=== PATIENT | male | born 1955 | race Caucasian/White ===

== ENCOUNTER 2016-06-25 15:13 | Emergency (ER) | payer BC ==
[2016-06-25 16:52] VITALS: BP 141/82
[2016-06-25] MEDS ORDERED: Cephalexin CAP* 500 MG PO ONE (18:02)
--- NOTE | 2016-06-25 18:05 | UC ---
Skin Complaint HPI - History of Current Complaint Chief Complaint: UCSkin Time Seen by Provider: 06/25/16 17:48 Stated Complaint: INSECT BITE Hx Obtained From: Patient - states he awoke with bug bite on outer L leg 4 days ago. Initially it was itchy. Now has gotten more red and today pus started to come out when he squeezes it, soreness today Onset/Duration: Gradual Onset Timing: Constant Onset Severity: Mild Current Severity: Moderate Aggravating: Touch Alleviating: Nothing Associated Signs & Symptoms: Positive: Negative Related History: Insect Bite/Sting - Allergy/Home Medications Allergies/Adverse Reactions: Allergies Allergy/AdvReac Type Severity Reaction Status Date / Time Clopidogrel [From Plavix] Allergy Severe Hives Verified 01/26/16 09:48 Iodinated Contrast Media Allergy Severe Hives Verified 01/26/16 09:48 [CONTRAST DYE] Latex Allergy Severe Hives Verified 01/26/16 09:48 Ibuprofen Allergy See Comment Verified 06/25/16 16:52 Review of Systems Constitutional: Negative Respiratory: Negative Cardiovascular: Negative Gastrointestinal: Negative Neurovascular: Negative Musculoskeletal: Negative Neurological: Negative Psychological: Negative All Other Systems Reviewed And Are Negative: Yes PMH/Surg Hx/FS Hx/Imm Hx Previously Healthy: Yes Endocrine History Of: Reports: Diabetes - type 2, Dyslipidemia Denies: Thyroid Disease, Hyperthyroidism, Hypothyroidism Cardiovascular History Of: Reports: Cardiac Disorders - [place], 2005, stent placement, Hypertension Denies: Pacemaker/ICD, Myocardial Infarction, Congestive Heart Failure, Atrial Fibrillation, Deep Vein Thrombosis, Bleeding Disorders Respiratory History Of: Reports: COPD, Asthma Denies: Bronchitis, Pneumonia, Pulmonary Embolism GI/ History Of: Reports: Gastroesophageal Reflux Denies: Ulcer, Gastrointestinal Bleed, Gall Bladder Disease, Kidney Stones, Diverticulitis, Renal Disease, Urosepsis Neurological History Of: Denies: TIA, CVA, Dementia, Seizures, Migraine Psychological History Of: Reports: Anxiety Denies: Depression, Bipolar Disorder, Schizophrenia, Post Traumatic Stress Disorder Cancer History Of: Denies: Lung Cancer, Colorectal Cancer, Breast Cancer, Prostate Cancer, Cervical Cancer Other History Of: Negative For: HIV, Hepatitis B, Hepatitis C - Surgical History Surgical History: Yes Surgery Procedure, Year, and Place: 1965 open reduction of right forearm. 2004 [facility](MRI CONDITIONAL UP TO 3T - 500G/CM)PT WILL BRING CARD. 2007 - bone spur removal LEFT shoulder. Tongue lesion removed-pre cancerous - Family History Known Family History: Positive: None - Social History Occupation: Retired Lives: With Family Alcohol Use: Rare Substance Use Type: None Smoking Status (MU): Former Smoker Type: Cigarettes When Did the Patient Quit Smoking/Using Tobacco: 1981 - Immunization History Most Recent Influenza Vaccination: season Most Recent Pneumonia Vaccination: UTD Physical Exam Triage Information Reviewed: Yes Appearance: Well-Appearing, No Pain Distress, Well-Nourished Vital Signs: Initial Vital Signs Temp 97.7 F 06/25/16 16:48 Pulse 78 06/25/16 16:48 Resp 18 06/25/16 16:48 BP 141/82 06/25/16 16:48 Pulse Ox 99 06/25/16 16:48 Vital Signs Reviewed: Yes Respiratory Exam: Normal Cardiovascular Exam: Normal Neurological Exam: Normal Psychological Exam: Normal Skin Exam: Other - 1cm diameter, slightly reaised, erythemic lesion lateral L leg near knee. small white central area, not draining unless pressure applied. scant amount white discharge collected for C&S. no streaking or dependent edema Course/Dx - Differential Diagnoses - Skin Complaint Differential Diagnoses: Abscess, Cellulitis, Other - insect bite - Diagnoses Provider Diagnoses: superficial abscess L leg Discharge - Discharge Plan Condition: Stable Disposition: HOME Prescriptions: Cephalexin CAP* [Keflex 500 CAP*] 500 mg PO TID #21 cap Patient Education Materials: Abscess (ED) Referrals: Mikel Leonard MD [Primary Care Provider] - 2 Days (recheck wound) Additional Instructions: apply warm packs to wound keep area clean and dry and apply thin layer of bacitracin ointment daily for 2- 4 days Take cephalexin as prescribed if your symptoms worsen at any time, please report to ER
== END 2016-06-25 18:20 | disposition home or self-care (01) ==
LOC: UCEAST 15:13
DX: L02.416 Cutaneous abscess of left lower limb (principal); E11.9 Type 2 diabetes mellitus without complications; E78.5 Hyperlipidemia, unspecified; I25.2 Old myocardial infarction; I25.10 Atherosclerotic heart disease of native coronary artery without angina pectoris; Z95.5 Presence of coronary angioplasty implant and graft; I10 Essential (primary) hypertension; J44.9 Chronic obstructive pulmonary disease, unspecified; J45.909 Unspecified asthma, uncomplicated; K21.9 Gastro-esophageal reflux disease without esophagitis; F41.9 Anxiety disorder, unspecified; Z87.891 Personal history of nicotine dependence; Z88.5 Allergy status to narcotic agent; Z88.8 Allergy status to other drugs, medicaments and biological substances; Z91.040 Latex allergy status; Z91.041 Radiographic dye allergy status
CPT/HCPCS: 87070; 87077; 87185; 87186; 87205; 99212; A9270-GY; G0463

== ENCOUNTER 2016-10-08 07:07 | Emergency (ER) | payer BC ==
[2016-10-08 07:28] VITALS: BP 154/88
--- NOTE | 2016-10-08 07:40 | UC ---
Respiratory Complaint HPI - HPI Summary HPI Summary: 1 WEEK OF COUGH, CONGESTION, ST, EAR PRESSURE, CHILL AND FATIGUE. FEELS HE IS GETTING WORSE. NO FEVER, N/V/D. - History of Current Complaint Chief Complaint: UCRespiratory Stated Complaint: SINUS ISSUE COUGH Time Seen by Provider: 10/08/16 07:21 Hx Obtained From: Patient Onset/Duration: Gradual Onset, Lasting Days, Still Present Timing: Constant Severity Initially: Moderate Severity Currently: Moderate Pain Intensity: 7 Pain Scale Used: 0-10 Numeric Character: Cough: Nonproductive Aggravating Factors: Nothing Alleviating Factors: Nothing Associated Signs And Symptoms: Positive: Chills, Wheezing, URI, Nasal Congestion , Hoarseness. Negative: Fever - Allergies/Home Medications Allergies/Adverse Reactions: Allergies Allergy/AdvReac Type Severity Reaction Status Date / Time Clopidogrel [From Plavix] Allergy Severe Hives Verified 01/26/16 09:48 Iodinated Contrast Media Allergy Severe Hives Verified 01/26/16 09:48 [CONTRAST DYE] Latex Allergy Severe Hives Verified 01/26/16 09:48 Ibuprofen Allergy See Comment Verified 06/25/16 16:52 PMH/Surg Hx/FS Hx/Imm Hx Endocrine History: Diabetes Cardiovascular History: Cardiac Disease - STENT 2004, Hypertension, Myocardial Infarction Respiratory History: COPD, Asthma Other History Of: Negative For: HIV, Hepatitis B, Hepatitis C - Surgical History Surgical History: Yes Surgery Procedure, Year, and Place: 1966 open reduction of right forearm. 2004 Stent placement - [facility] ELUDING STENT(MRI CONDITIONAL UP TO 3T - 500G/CM)PT WILL BRING CARD. 2007 - bone spur removal LEFT shoulder. Tongue lesion removed-pre cancerous - Family History Known Family History: Positive: Diabetes - Social History Alcohol Use: Rare Substance Use Type: None Smoking Status (MU): Former Smoker Type: Cigarettes When Did the Patient Quit Smoking/Using Tobacco: 1981 - Immunization History Most Recent Influenza Vaccination: season Most Recent Pneumonia Vaccination: UTD Review of Systems Constitutional: Chills, Fatigue ENT: Sore Throat, Ear Ache, Nasal Discharge Respiratory: Cough Cardiovascular: Negative Gastrointestinal: Negative All Other Systems Reviewed And Are Negative: Yes Physical Exam Triage Information Reviewed: Yes Appearance: Well-Appearing, No Pain Distress, Well-Nourished Vital Signs: Initial Vital Signs Temp 96.8 F 06/10/17 07:23 Pulse 74 10/08/16 07:23 Resp 18 10/08/16 07:23 BP 154/88 10/08/16 07:23 Pulse Ox 99 10/08/16 07:23 Vital Signs Reviewed: Yes Eyes: Positive: Conjunctiva Clear ENT: Positive: Hearing grossly normal, Pharyngeal erythema, TMs normal Neck: Positive: Supple, Nontender, No Lymphadenopathy Respiratory: Positive: No respiratory distress, No accessory muscle use, Decreased breath sounds, Wheezing - INTERMITTENT RIGHT SIDED Cardiovascular Exam: Normal Abdomen Description: Positive: Soft Musculoskeletal: Positive: No Edema Neurological: Positive: Alert Psychological: Positive: Age Appropriate Behavior Skin: Negative: rashes UC Diagnostic Evaluation - Laboratory O2 Sat by Pulse Oximetry: 99 Respiratory Course/Dx - Differential Dx/Diagnosis Provider Diagnoses: ACUTE BRONCHITIS Discharge - Discharge Plan Condition: Stable Disposition: HOME Prescriptions: Azithromycin [Azithromycin 500 MG TAB] 500 mg PO DAILY #5 tab guaiFENesin/CODIEN 100MG-10MG* [Robitussin AC 100Mg-10Mg*] 5 - 10 ml PO Q6H PRN #150 ml MDD 40ML PRN Reason: Cough predniSONE TAB* [Deltasone TAB*] 40 mg PO DAILY #10 tab Patient Education Materials: Acute Bronchitis (ED) Referrals: Mikel Leonard MD [Primary Care Provider] - If Needed
== END 2016-10-08 07:54 | disposition home or self-care (01) ==
LOC: UCEAST 07:07
DX: J20.9 Acute bronchitis, unspecified (principal); E11.9 Type 2 diabetes mellitus without complications; I25.2 Old myocardial infarction; I10 Essential (primary) hypertension; Z95.5 Presence of coronary angioplasty implant and graft; J44.9 Chronic obstructive pulmonary disease, unspecified; Z88.6 Allergy status to analgesic agent; Z88.8 Allergy status to other drugs, medicaments and biological substances; Z91.041 Radiographic dye allergy status; Z91.040 Latex allergy status; Z87.891 Personal history of nicotine dependence
CPT/HCPCS: 99212; G0463

== ENCOUNTER 2018-08-31 19:25 | Emergency (ER) | payer BC ==
[2018-08-31 19:57] VITALS: BP 156/93
[2018-08-31] MEDS ORDERED: DOXYcycline CAP(*) 100 MG PO ONE (20:15)
--- NOTE | 2018-08-31 20:20 | UC ---
Skin Complaint HPI - HPI Summary HPI Summary: 63 year old male present with tick on L upper arm, unsure how long tick has been attached but believes greater than or around 24 hours. concerned because feeling sweaty, tired, and concerned about lyme disease as he has known people that have this disease. no other complaints, no prior exposure to lyme disease. - History of Current Complaint Chief Complaint: UCSkin Time Seen by Provider: 08/31/18 20:06 Stated Complaint: TICK BITE Hx Obtained From: Patient Onset/Duration: Sudden Onset, Lasting Days Skin Exposure Onset/Duration: Days Ago Pain Intensity: 3 Pain Scale Used: 0-10 Numeric - Allergy/Home Medications Allergies/Adverse Reactions: Allergies Allergy/AdvReac Type Severity Reaction Status Date / Time clopidogrel Allergy Severe Hives Verified 08/31/18 19:58 Iodinated Contrast- Oral and Allergy Severe Hives Verified 08/31/18 19:58 IV Dye latex Allergy Severe Hives Verified 08/31/18 19:58 ibuprofen Allergy See Comment Verified 08/31/18 19:58 PMH/Surg Hx/FS Hx/Imm Hx Previously Healthy: Yes Other History Of: Negative For: HIV, Hepatitis B, Hepatitis C - Surgical History Surgical History: Yes Surgery Procedure, Year, and Place: 1965 open reduction of right forearm. 2004 Stent placement - [facility] ELUDING STENT(MRI CONDITIONAL UP TO 3T - 500G/CM)PT WILL BRING CARD. 2007 - bone spur removal LEFT shoulder. Tongue lesion removed-pre cancerous - Family History Known Family History: Positive: None, Diabetes - Social History Alcohol Use: Rare Alcohol Amount: 1 mo. Substance Use Type: None Smoking Status (MU): Former Smoker Type: Cigarettes When Did the Patient Quit Smoking/Using Tobacco: 1981 - Immunization History Most Recent Influenza Vaccination: season Most Recent Pneumonia Vaccination: UTD Review of Systems All Other Systems Reviewed And Are Negative: Yes Constitutional: Positive: Chills, Fatigue Skin: Positive: Rash - at tick bite site Psychological: Positive: Anxious Is Patient Immunocompromised?: No Physical Exam Triage Information Reviewed: Yes Appearance: Well-Appearing, No Pain Distress, Well-Nourished Vital Signs: Initial Vital Signs Temp 96.6 F 08/31/18 19:52 Pulse 86 08/31/18 19:52 Resp 16 08/31/18 19:52 BP 156/93 08/31/18 19:52 Pulse Ox 97 08/31/18 19:52 Vital Signs Reviewed: Yes Eyes: Positive: Conjunctiva Clear Musculoskeletal Exam: Normal Neurological Exam: Normal Psychological Exam: Normal Skin: Positive: Other - Small not engorged deer tick noted on L upper arm, removed without difficulty area cleaned with alcohol, bruising around site, no rash. non-tender. Course/Dx - Course Course Of Treatment: tick removed without difficulty, patient feels better after being reassured that lyme disease could not start this soon after a bite, educated to monitor area, doxy given due to unknown duration of bite. H/O HTN- will follow with PCP on meds, - Diagnoses Provider Diagnosis: Tick bite Discharge - Sign-Out/Discharge Documenting (check all that apply): Patient Departure All imaging exams completed and their final reports reviewed: No Studies - Discharge Plan Condition: Good Disposition: HOME Patient Education Materials: Lyme Disease (ED), Tick Bite (ED) Referrals: Mikel Leonard MD [Primary Care Provider] - Additional Instructions: - Monitor for symptoms of lyme - Monitor site for infection - Follow up with primary if symptoms develop. - Prophylaxis given today - Follow up with primary due to elevated blood pressure - Billing Disposition and Condition Condition: GOOD Disposition: Home - Attestation Statements Provider Attestation: Patient not seen by me. I was available for consult.
== END 2018-08-31 20:35 | disposition home or self-care (01) ==
LOC: UCEAST 19:25
DX: S40.862A Insect bite (nonvenomous) of left upper arm, initial encounter (principal); I10 Essential (primary) hypertension; W57.XXXA Bitten or stung by nonvenomous insect and other nonvenomous arthropods, initial encounter; Z88.8 Allergy status to other drugs, medicaments and biological substances; Z91.041 Radiographic dye allergy status; Z91.040 Latex allergy status; Z87.891 Personal history of nicotine dependence
CPT/HCPCS: 99212; A9270-GY; G0463

== ENCOUNTER 2018-09-12 09:40 | Emergency (ER) | payer BC ==
[2018-09-12 09:54] VITALS: BP 137/89
--- NOTE | 2018-09-12 10:27 | UC ---
Respiratory Complaint HPI - HPI Summary HPI Summary: 63-year-old male comes in with a chief complaint of more than one week of cough chest congestion upper respiratory tract infection symptoms. Patient does have a history of asthma and is been using his albuterol frequently at home. Albuterol does help briefly but then he gets short of breath again. He's having thick sputum production. He is on CPAP has been having a hard time sleeping because of the shortness of breath. He does get some bilateral chest pain with cough and chest tightness. Patient's had a heart attack in the past he says this does not feel like a heart attack. Patient took a Z-Dustin which did help but then symptoms came back and at the end of the course of the Z-Dustin. No complaint of any pedal edema or calf pain no history of DVT or pulmonary embolus. - History of Current Complaint Chief Complaint: UCRespiratory Stated Complaint: RESP.ISSIUES Time Seen by Provider: 09/12/18 10:13 Pain Intensity: 5 - Allergies/Home Medications Allergies/Adverse Reactions: Allergies Allergy/AdvReac Type Severity Reaction Status Date / Time clopidogrel Allergy Severe Hives Verified 09/12/18 09:54 Iodinated Contrast- Oral and Allergy Severe Hives Verified 09/12/18 09:54 IV Dye latex Allergy Severe Hives Verified 09/12/18 09:54 ibuprofen Allergy See Comment Verified 09/12/18 09:54 PMH/Surg Hx/FS Hx/Imm Hx Previously Healthy: Yes Endocrine History: Diabetes, Dyslipidemia Cardiovascular History: Hypertension, Myocardial Infarction Respiratory History: Asthma GI/ History: Gastroesophageal Reflux Other History Of: Negative For: HIV, Hepatitis B, Hepatitis C - Surgical History Surgical History: Yes Surgery Procedure, Year, and Place: 1965 open reduction of right forearm. 2004 Stent placement - [facility] STENT(MRI CONDITIONAL UP TO 3T - 500G/CM)PT WILL BRING CARD. 2007 - bone spur removal LEFT shoulder. Tongue lesion removed-pre cancerous - Family History Known Family History: Positive: None, Diabetes - Social History Alcohol Use: Rare Alcohol Amount: 1 mo. Substance Use Type: None Smoking Status (MU): Former Smoker Type: Cigarettes When Did the Patient Quit Smoking/Using Tobacco: 1981 - Immunization History Most Recent Influenza Vaccination: season Most Recent Pneumonia Vaccination: UTD Review of Systems All Other Systems Reviewed And Are Negative: Yes Constitutional: Positive: Other - SEE HPI Skin: Positive: Negative Eyes: Positive: Negative ENT: Positive: Nasal Discharge Respiratory: Positive: Shortness Of Breath, Cough, Other - SEE HPI Cardiovascular: Positive: Other - SEE HPI Gastrointestinal: Positive: Negative Motor: Positive: Negative Neurovascular: Positive: Negative Musculoskeletal: Positive: Negative. Negative: Calf Tenderness, Edema Neurological: Positive: Negative Psychological: Positive: Negative Is Patient Immunocompromised?: No Physical Exam Triage Information Reviewed: Yes Appearance: No Pain Distress, Well-Nourished, Ill-Appearing - MILD Vital Signs: Initial Vital Signs Temp 97.2 F 09/12/18 09:48 Pulse 75 09/12/18 09:48 Resp 18 09/12/18 09:48 BP 137/89 09/12/18 09:48 Pulse Ox 100 09/12/18 09:48 Vital Signs Reviewed: Yes Eye Exam: Normal Eyes: Positive: Conjunctiva Clear ENT: Positive: Pharynx normal, Nasal congestion, TMs normal Neck: Positive: Supple Respiratory: Positive: Lungs clear, Normal breath sounds, No respiratory distress Cardiovascular: Positive: RRR Musculoskeletal: Positive: Strength Intact, ROM Intact, No Edema - NO CALF TENDERNESS Psychological Exam: Normal Psychological: Positive: Age Appropriate Behavior Skin Exam: Normal Respiratory Course/Dx - Course Course Of Treatment: Patient Name: ELENI FLOWERS Medical Record#: [id number] Ordering Physician: Arthur Dong MD Acct.#: [id number] : 1955 Age: 63 Sex: M Location: [facility] Exam Date: 09/12/18 1022 ADM Status: REG ER Order Information: CHEST PA LAT 2 VWS Accession Number: [id number] CPT: 15285 Indication: Chest congestion. Shortness of breath. 2 views of the chest including dual energy PA views demonstrates no mediastinal shift. Heart is of normal size and configuration. Lung kang appear clear. Compared to previous exam of November 06, 2009 no significant change is noted. IMPRESSION: No active cardiopulmonary disease is noted. <Electronically signed by Eryn Deras MD in OV> 09/12/18 1057 I discussed the chest x-ray report with the patient. The patient's shortness of breath did improve in clinic with an albuterol nebulizer. Patient reports that in the past 20s taken prednisone his diabetes has gotten out of control therefore he prefers to not be on prednisone a possible. He does take an inhaled corticosteroid. The plan is to keep gone with his inhalers to include his inhaled corticosteroid. No pneumonia seen on chest x-ray. Because of the worsening of his symptoms will continue antibiotics. Patient 30 had days azithromycin therefore we will treat with Augmentin at this time. Patient to follow-up his primary care doctor if he gets worse the patient should go to the emergency department. - Differential Dx/Diagnosis Provider Diagnosis: Bronchitis, Asthma Discharge - Sign-Out/Discharge Documenting (check all that apply): Patient Departure All imaging exams completed and their final reports reviewed: Yes - Discharge Plan Condition: Stable Disposition: HOME Prescriptions: Amoxicillin/Clavulanate TAB* [Augmentin TAB 875*] 875 mg PO BID #20 tab Patient Education Materials: Asthma (ED), Acute Bronchitis (ED) Referrals: Mikel Leonard MD [Primary Care Provider] - Additional Instructions: FOLLOW UP WITH YOUR DOCTOR. GO TO THE EMERGENCY DEPARTMENT IF YOUR CONDITION WORSENS OR ANY QUESTIONS OR CONCERNS. - Billing Disposition and Condition Condition: STABLE Disposition: Home
[2018-09-12] MEDS ORDERED: Albuterol 2.5 MG/3 ML NEB.SOL* (0.083%) INH ONE (10:35)
== END 2018-09-12 11:30 | disposition home or self-care (01) ==
LOC: UCEAST 09:40
DX: J45.909 Unspecified asthma, uncomplicated (principal); E11.9 Type 2 diabetes mellitus without complications; I10 Essential (primary) hypertension; G47.33 Obstructive sleep apnea (adult) (pediatric); I25.2 Old myocardial infarction; Z91.040 Latex allergy status; Z87.891 Personal history of nicotine dependence; Z91.041 Radiographic dye allergy status; Z88.8 Allergy status to other drugs, medicaments and biological substances
CPT/HCPCS: 71046; 99212; G0463

== ENCOUNTER 2018-10-09 07:02 | Emergency (ER) | payer BC ==
[2018-10-09 07:15] VITALS: BP 130/80
--- NOTE | 2018-10-09 07:25 | UC ---
Throat Pain/Nasal Ryne HPI - HPI Summary HPI Summary: 63-year-old male comes in with a chief complaint of sore throat for 4 days. Hurts more when he swallows. Take acetaminophen which does help some with the symptoms. No fevers or chills no runny nose no cough or chest congestion. He did notice a white area blister on the right tonsil. 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 - History of Current Complaint Chief Complaint: UCGeneralIllness Stated Complaint: SORE THROAT Time Seen by Provider: 10/09/18 07:10 Pain Intensity: 3 - Allergies/Home Medications Allergies/Adverse Reactions: Allergies Allergy/AdvReac Type Severity Reaction Status Date / Time clopidogrel Allergy Severe Hives Verified 10/09/18 07:15 Iodinated Contrast- Oral and Allergy Severe Hives Verified 10/09/18 07:15 IV Dye latex Allergy Severe Hives Verified 10/09/18 07:15 ibuprofen Allergy See Comment Verified 10/09/18 07:15 PMH/Surg Hx/FS Hx/Imm Hx Previously Healthy: Yes Endocrine History: Diabetes Cardiovascular History: Hypertension GI/ History: Gastroesophageal Reflux Other History Of: Negative For: HIV, Hepatitis B, Hepatitis C - Surgical History Surgical History: Yes Surgery Procedure, Year, and Place: 1965 open reduction of right forearm. 2004 Stent [facility] - [facility] ELUDING STENT(MRI CONDITIONAL UP TO 3T - 500G/CM)PT WILL BRING CARD. 2007 - bone spur removal LEFT shoulder. Tongue lesion removed-pre cancerous - Family History Known Family History: Positive: None, Diabetes - Social History Alcohol Use: Rare Alcohol Amount: 1 mo. Substance Use Type: None Smoking Status (MU): Former Smoker Type: Cigarettes When Did the Patient Quit Smoking/Using Tobacco: 1981 - Immunization History Most Recent Influenza Vaccination: 2015/2015 season Most Recent Pneumonia Vaccination: UTD Review of Systems All Other Systems Reviewed And Are Negative: Yes Constitutional: Positive: Negative Skin: Positive: Negative Eyes: Positive: Negative ENT: Positive: Sore Throat Respiratory: Positive: Negative Cardiovascular: Positive: Negative Gastrointestinal: Positive: Negative Motor: Positive: Negative Neurovascular: Positive: Negative Musculoskeletal: Positive: Negative Neurological: Positive: Negative Psychological: Positive: Negative Is Patient Immunocompromised?: No Physical Exam Triage Information Reviewed: Yes Appearance: Well-Appearing, No Pain Distress, Well-Nourished Vital Signs: Initial Vital Signs Temp 97.9 F 10/09/18 07:13 Pulse 77 10/09/18 07:13 Resp 15 10/09/18 07:13 BP 130/80 10/09/18 07:13 Pulse Ox 99 10/09/18 07:13 Vital Signs Reviewed: Yes Eye Exam: Normal Eyes: Positive: Conjunctiva Clear ENT: Positive: Pharyngeal erythema, Tonsillar swelling - RT, Tonsillar exudate - 4MM WHITE SPOT RT TONSIL Neck: Positive: Supple Respiratory: Positive: Lungs clear, Normal breath sounds, No respiratory distress Cardiovascular: Positive: RRR Musculoskeletal Exam: Normal Musculoskeletal: Positive: Strength Intact, ROM Intact Neurological: Positive: Alert Psychological Exam: Normal Psychological: Positive: Age Appropriate Behavior Skin Exam: Normal Throat Pain/Nasal Course/Dx - Course Course Of Treatment: DISCUSSED VIRAL VERSES BACTERIAL INFECTION AND THE ROLE OF ANTIBIOTICS. THE PATIENT PREFERS TO BE ON ANTIBIOTICS AT THIS TIME. - Differential Dx/Diagnosis Provider Diagnosis: Pharyngitis Discharge - Sign-Out/Discharge Documenting (check all that apply): Patient Departure All imaging exams completed and their final reports reviewed: No Studies - Discharge Plan Condition: Stable Disposition: HOME Prescriptions: Cephalexin CAP* [Keflex CAP*] 500 mg PO TID #30 cap Patient Education Materials: Pharyngitis (ED) Referrals: Mikel Leonard MD [Primary Care Provider] - Jose Tripp MD [Medical Doctor] - Additional Instructions: FOLLOW UP WITH ENT, DR TRIPP, IF NOT COMPLETELY IMPROVED. GET RECHECKED SOONER IF YOUR CONDITION WORSENS OR ANY QUESTIONS OR CONCERNS. - Billing Disposition and Condition Condition: STABLE Disposition: Home
== END 2018-10-09 07:30 | disposition home or self-care (01) ==
LOC: UCEAST 07:02
DX: J02.9 Acute pharyngitis, unspecified (principal); E11.9 Type 2 diabetes mellitus without complications; I10 Essential (primary) hypertension; Z87.891 Personal history of nicotine dependence
CPT/HCPCS: 87651; 99212; G0463

== ENCOUNTER 2019-01-30 09:38 | Emergency (ER) | payer BC ==
[2019-01-30 10:13] VITALS: BP 140/79
--- NOTE | 2019-01-30 10:21 | UC ---
Throat Pain/Nasal Ryne HPI - HPI Summary HPI Summary: 64 yo male presents with sore throat. He tells me that for the past 2 weeks he has noticed right neck pain that radiates into his right clavicle and into his shoulder. Pain is noticeable at rest and is worse with a deep breath. Does not change with movement or swallowing. He has had cold symptoms with a runny nose, post nasal drip, and dry cough intermittently over the past week. He has a history of a tongue cancer that was removed about 3 years ago by Oral surgery. Denies weight loss, fatigue, fever, chills, SOB, chest pain. No difficulty breathing or swallowing - History of Current Complaint Chief Complaint: UCGeneralIllness Stated Complaint: SORE THROAT Time Seen by Provider: 01/30/19 10:21 Hx Obtained From: Patient Onset/Duration: Gradual Onset Severity: Moderate Pain Intensity: 7 Pain Scale Used: 0-10 Numeric - Allergies/Home Medications Allergies/Adverse Reactions: Allergies Allergy/AdvReac Type Severity Reaction Status Date / Time clopidogrel Allergy Severe Hives Verified 01/30/19 10:02 Iodinated Contrast Media Allergy Severe Hives Verified 01/30/19 10:02 [Iodinated Contrast- Oral and IV Dye] latex Allergy Severe Hives Verified 01/30/19 10:02 ibuprofen Allergy See Comment Verified 01/30/19 10:02 PMH/Surg Hx/FS Hx/Imm Hx Endocrine History: Diabetes Cardiovascular History: Cardiac Disease, Hypertension Respiratory History: COPD GI/ History: Gastroesophageal Reflux Other History Of: Negative For: HIV, Hepatitis B, Hepatitis C - Surgical History Surgical History: Yes Surgery Procedure, Year, and Place: 1965 open reduction of right forearm. 2004 Stent placement - [facility] STENT(MRI CONDITIONAL UP TO 3T - 500G/CM)PT WILL BRING CARD. 2007 - bone spur removal LEFT shoulder. Tongue lesion removed-pre cancerous - Family History Known Family History: Positive: Diabetes - Social History Lives: With Family Alcohol Use: Rare Alcohol Amount: 1 mo. Substance Use Type: None Smoking Status (MU): Former Smoker Type: Cigarettes When Did the Patient Quit Smoking/Using Tobacco: 1981 - Immunization History Most Recent Influenza Vaccination: 2015/2015 season Most Recent Pneumonia Vaccination: UTD Review of Systems All Other Systems Reviewed And Are Negative: No Constitutional: Positive: Negative Skin: Positive: Negative Eyes: Positive: Negative ENT: Positive: Sore Throat Respiratory: Positive: Negative Cardiovascular: Positive: Negative Gastrointestinal: Positive: Negative Neurovascular: Positive: Negative Neurological: Positive: Negative Psychological: Positive: Negative Physical Exam - Summary Physical Exam Summary: GENERAL: NAD. WDWN. No pain distress. SKIN: No rashes, sores, or open wounds. HEENT: Head: AT/NC Eyes: PERRLA. EOM intact. Conjunctiva clear without inflammation or discharge. Ears: Hearing grossly normal. TMs intact, no bulging, erythema, or edema. Nose: Nasal mucosa pink and moist. NTTP maxillary and frontal sinus. Throat: Posterior oropharynx without exudates, erythema, or tonsillar enlargement. Uvula midline. Positive post nasal drip NECK: Supple. Nontender. No lymphadenopathy. CHEST: CTAB. Scant wheezing throughout worst at RUL. No accessory muscle use. Breathing comfortably and in no distress. CV: RRR. Pulses intact. Brisk cap refill. MSK: FROM and 5/5 strength throughout. NECK: FROM. TTP about posterior and anterior region around SCM without appreciable soft tissue abnormality. NEURO: Alert. PSYCH: Age appropriate behavior. Triage Information Reviewed: Yes Vital Signs: Initial Vital Signs Temp 97.7 F 01/30/19 10:07 Pulse 80 01/30/19 10:07 Resp 18 01/30/19 10:07 BP 140/79 01/30/19 10:07 Pulse Ox 99 01/30/19 10:07 Vital Signs Reviewed: Yes Diagnostics - Radiology XR neck Radiology Interpretation Completed By: Radiologist Summary of Radiographic Findings: IMPRESSION: 1. PREVERTEBRAL SOFT TISSUE SWELLING ALONG THE UPPER CERVICAL SPINE, LIKELY REPRESENTING PHARYNGEAL MUCOSAL EDEMA GIVEN THE CLINICAL HISTORY. IF CLINICALLY INDICATED, THIS CAN BE FURTHER EVALUATED WITH CONTRAST-ENHANCED CT OF THE NECK. 2. DEGENERATIVE DISC DISEASE AND OSTEOARTHRITIS. CXR Radiology Interpretation Completed By: Radiologist Summary of Radiographic Findings: IMPRESSION: NO ACTIVE CARDIOPULMONARY DISEASE. Throat Pain/Nasal Course/Dx - Course Course Of Treatment: He was given viscous lidocaine in the clinic which did not change his discomfort. XR as above. Discussed with pt. Given his worsening symptoms and hx of oral cancer - I recommended he go to the ER for further evaluation, likely for a CT with contrast of the area. He was agreeable to this and his will drive him. - Differential Dx/Diagnosis Provider Diagnosis: Throat pain Discharge ED - Sign-Out/Discharge Documenting (check all that apply): Patient Departure All imaging exams completed and their final reports reviewed: Yes - Discharge Plan Condition: Stable Disposition: HOME-RECOMMEND TO ED Referrals: Mikel Leonard MD [Primary Care Provider] - Additional Instructions: Please go to the ER for further evaluation of your neck pain and findings on your neck XR today - Billing Disposition and Condition Condition: STABLE Disposition: Home-Recommend to ED - Attestation Statements Provider Attestation: I was available for consult. This patient was seen by the JONO. The patient was not presented to, seen by, or examined by me. -Patricia
[2019-01-30] MEDS ORDERED: Lidocaine 2% VISCOUS* 15 ML UDC PO ONE (11:04)
== END 2019-01-30 11:31 | disposition home health service (06) ==
LOC: UCEAST 09:38
DX: R07.0 Pain in throat (principal); M54.2 Cervicalgia; M25.511 Pain in right shoulder; E11.9 Type 2 diabetes mellitus without complications; I10 Essential (primary) hypertension; J44.9 Chronic obstructive pulmonary disease, unspecified; M79.89 Other specified soft tissue disorders; M50.30 Other cervical disc degeneration, unspecified cervical region; M19.90 Unspecified osteoarthritis, unspecified site; R09.89 Other specified symptoms and signs involving the circulatory and respiratory systems; Z91.041 Radiographic dye allergy status; Z91.040 Latex allergy status; Z90.49 Acquired absence of other specified parts of digestive tract; Z85.810 Personal history of malignant neoplasm of tongue; Z88.8 Allergy status to other drugs, medicaments and biological substances; Z87.891 Personal history of nicotine dependence
CPT/HCPCS: 70360; 71046; 87651; 99212; G0463

== ENCOUNTER 2019-01-30 11:54 | Emergency (ER) | payer BC ==
[2019-01-30 12:28] LABS: ABS Eosinophils 0.1 10^3/ul (0-0.6); ABS Lymphocytes 2.5 10^3/ul (1.0-4.8); ABS Monocytes 0.7 10^3/ul (0-0.8); ABS Neutrophils 6.3 10^3/ul (1.5-7.7); Eosinophil % 1.1 %; Hematocrit 43 % (42-52); Hemoglobin 13.9 g/dL (14.0-18.0); Lymphocyte % 25.8 %; Mean Corpuscular HGB Conc 32 g/dL (31-36); Mean Corpuscular Hemoglobin 26 pg (27-31); Mean Corpuscular Volume 80 fL (80-94); Platelet Count 293 10^3/uL (150-450); Red Blood Count 5.35 10^6 /uL (4.18-5.48); Red Cell Distribution Width 16 % (10-15); White Blood Count 9.6 10^3/uL (3.5-10.8)
[2019-01-30 12:34] LABS: INR 1.03 (0.82-1.09)
--- NOTE | 2019-01-30 12:40 | ED ---
Complex/Multi-Sys Presentation - HPI Summary HPI Summary: Patient is a 64 y/o M w/ Hx of MT and one cardiac stent from 15 years ago who presents to [facility] with complaints of neck and right chest pain. He describes pain to be at his neck, right-side of throat, down his trachea and to his right clavicle. He states that the pain feels musculoskeletal in nature. Patient was evaluated at convenient care today. CXR was normal, but neck X-ray noted an abnormality. He was sent to ED for CT. He denies recent trauma, fever, chills, difficulty swallowing. He has Hx of cervical issues and states that he is followed by PCP and neurosurgery for this. PMHx of HTN, HLD, and diabetes is endorsed. He is not on blood thinners. PSHx of right arm, left shoulder, and tongue surgery. FMHx of cancer, none of HTN and diabetes noted. On triage, pain is rated 7/10. Home medications and allergies are reviewed. - History Of Current Complaint Hx Obtained From: Patient Onset/Duration: Still Present Timing: Constant Severity Currently: Severe Location: Pain At: - neck and chest pain. He describes pain to be at his neck, right-side of throat, down his trachea and to his clavicle. Associated Signs And Symptoms: Positive: Chest Pain, Other - neck and chest pain. He describes pain to be at his neck, right-side of throat, down his trachea and to his clavicle. negative - chills. Negative: Fever - Allergies/Home Medications Allergies/Adverse Reactions: Allergies Allergy/AdvReac Type Severity Reaction Status Date / Time clopidogrel Allergy Severe Hives Verified 01/30/19 10:02 Iodinated Contrast Media Allergy Severe Hives Verified 01/30/19 10:02 [Iodinated Contrast- Oral and IV Dye] latex Allergy Severe Hives Verified 01/30/19 10:02 ibuprofen Allergy See Comment Verified 01/30/19 10:02 Home Medications: Home Medications Acetaminop/Codeine 30 MG TAB* [Tylenol/Codeine 30 MG TAB*] 1 tab PO Q6H PRN 06/19 [History Confirmed 01/30/19] Albuterol HFA INHALER* [Ventolin HFA Inhaler*] 1 - 2 puff INH Q4H PRN 01/30/19 [ History Confirmed 01/30/19] Dapagliflozin Propanediol [Farxiga] 5 mg PO DAILY 01/30/19 [History Confirmed ] [id number] Ethyl Esters (NF) [Lovaza (NF)] 1 cap PO DAILY 01/30/19 [History Confirmed 01/30/19] PMH/Surg Hx/FS Hx/Imm Hx Endocrine/Hematology History: Reports: Hx Diabetes - type 2 Denies: Hx Thyroid Disease Cardiovascular History: Reports: Hx Hypertension Denies: Hx Congestive Heart Failure, Hx Deep Vein Thrombosis, Hx Myocardial Infarction, Hx Pacemaker/ICD Respiratory History: Reports: Hx Asthma, Hx Chronic Obstructive Pulmonary Disease (COPD), Hx Sleep Apnea Denies: Hx Lung Cancer, Hx Pneumonia, Hx Pulmonary Embolism GI History: Denies: Hx Gall Bladder Disease, Hx Gastrointestinal Bleed, Hx Ulcer, Hx Urosepsis History: Denies: Hx Kidney Stones, Hx Renal Disease Sensory History: Reports: Hx Contacts or Glasses Denies: Hx Hearing Aid Opthamlomology History: Reports: Hx Contacts or Glasses Neurological History: Denies: Hx Dementia, Hx Migraine, Hx Seizures, Hx Transient Ischemic Attacks (TIA) Psychiatric History: Reports: Hx Anxiety Denies: Hx Depression, Hx Panic Disorder, Hx Schizophrenia, Hx Bipolar Disorder - Surgical History Surgery Procedure, Year, and Place: 1965 open reduction of right forearm. 2004 Stent placement - [facility] STENT(MRI CONDITIONAL UP TO 3T - 500G/CM)PT WILL BRING CARD. 2007 - bone spur removal LEFT shoulder. Tongue lesion removed-pre cancerous Infectious Disease History: Denies: Hx Clostridium Difficile, Hx Hepatitis, Hx Human Immunodeficiency Virus (HIV), Hx of Known/Suspected MRSA, Hx Shingles, Hx Tuberculosis, Hx Known/ Suspected VRE, Hx Known/Suspected VRSA, History Other Infectious Disease - Family History Known Family History: Positive: Diabetes - Social History Alcohol Use: Rare Alcohol Amount: 1 mo. Substance Use Type: Reports: None Smoking Status (MU): Former Smoker Type: Cigarettes Review of Systems Negative: Fever, Chills Positive: Chest Pain Musculoskeletal: Other - pain of neck, right-side of throat, down his trachea and to his clavicle. no recent lifting or trauma All Other Systems Reviewed And Are Negative: Yes Physical Exam - Summary Physical Exam Summary: VITAL SIGNS: Reviewed. GENERAL: Patient is a well-developed and nourished male who is lying comfortable in the stretcher. Patient is not in any acute respiratory distress. HEAD AND FACE: No signs of trauma. No ecchymosis, hematomas or skull depressions. No sinus tenderness. EYES: PERRLA, EOMI x 2, No injected conjunctiva, no nystagmus. EARS: Hearing grossly intact. Ear canals and tympanic membranes are within normal limits. MOUTH: Oropharynx within normal limits. NECK: Supple, trachea is midline, no adenopathy, no JVD, no carotid bruit, no c- spine tenderness, neck with full ROM. CHEST: Symmetric, no tenderness at palpation. LUNGS: Clear to auscultation bilaterally. No wheezing or crackles. CVS: Regular rate and rhythm, S1 and S2 present, no murmurs or gallops appreciated. ABDOMEN: Soft, non-tender. No signs of distention. No rebound, no guarding, and no masses palpated. Bowel sounds are normal. EXTREMITIES: FROM in all major joints, no edema, no cyanosis or clubbing. NEURO: Alert and oriented x 3. No acute neurological deficits. Speech is normal and follows commands. SKIN: Dry and warm. Triage Information Reviewed: Yes Vital Signs On Initial Exam: Initial Vitals Temp Pulse Resp BP Pulse Ox 97.1 F 76 18 175/97 100 01/30/19 12:01 01/30/19 12:01 01/30/19 12:01 01/30/19 12:01 01/30/19 12:01 Vital Signs Reviewed: Yes Procedures - Sedation Patient Received Moderate/Deep Sedation with Procedure: No Diagnostics - Laboratory Result Diagrams: 01/30/19 12:13 01/30/19 12:13 Lab Statement: Any lab studies that have been ordered have been reviewed, and results considered in the medical decision making process. - Radiology MRI HEAD/FACE/NECK Radiology Interpretation Completed By: Radiologist Summary of Radiographic Findings: IMPRESSION: UNREMARKABLE MRI OF THE NECK. THERE IS NO LYMPHADENOPATHY BY SIZE CRITERIA. THERE IS NO. MUCOSAL EDEMA OR OTHER MR FINDINGS TO CORRESPOND TO THE PREVERTEBRAL SOFT TISSUE SWELLING. NOTED ON RADIOGRAPH. THIS REPORT WAS REVIEWED BY DR. LEO. - EKG 1154 Cardiac Rate: NL - rate of 70 BPM EKG Rhythm: Sinus Rhythm Summary of EKG Findings: EKG is a normal sinus rhythm at [address] elevations. EKG shows Q waves in 2 and aVF. EKG has been reviewed and interpreted by ED physician. Re-Evaluation - Re-Evaluation First Eval Re-Evaluation Time: 17:00 Comment: I discussed all the findings and test results with the patient. Patient was instructed to return to the emergency room immediately if any of the symptoms return or worsen. Plan of care was discussed with the patient and understands and agrees. All questions were answered at patient satisfaction. There were no further complaints or concerns. Lung exam before discharge: CTA B /L. Good air exchange. No wheezing or crackles heard. CVS: S1 and S2 present. No murmurs appreciated. Patient is alert and oriented x 3. Patient is hemodynamically stable. Patient will be discharged home with follow up PCP in the next 2-3 days Complex Multi-Symp Course/Dx Assessment/Plan: This patient is a 64-year-old male who presents to the emergency department after he was seen in the urgent care complaining of neck pain and right side CP. They did an x-ray of the neck and there were abnormal findings, therefore recommended to do a CT soft tissue of the neck with contrast. Patient reports that the pain is dull, constant, denies any fever denies any chills, denies any difficulty swallowing, denies any history of trauma or heavy lifting. CXR IMPRESSION: NO ACTIVE CARDIOPULMONARY DISEASE. Neck x ray IMPRESSION: 1. PREVERTEBRAL SOFT TISSUE SWELLING ALONG THE UPPER CERVICAL SPINE, LIKELY REPRESENTING. PHARYNGEAL MUCOSAL EDEMA GIVEN THE CLINICAL HISTORY. IF CLINICALLY INDICATED, THIS CAN BE. FURTHER EVALUATED WITH CONTRAST-ENHANCED CT OF THE NECK. 2. DEGENERATIVE DISC DISEASE AND OSTEOARTHRITIS. MRI soft tissue neck IMPRESSION: UNREMARKABLE MRI OF THE NECK. THERE IS NO LYMPHADENOPATHY BY SIZE CRITERIA. THERE IS NO. MUCOSAL EDEMA OR OTHER MR FINDINGS TO CORRESPOND TO THE PREVERTEBRAL SOFT TISSUE SWELLING. NOTED ON RADIOGRAPH. I was unable to do a CT soft tissue with IV contrast since the patient is allergic to IVP dye. The patient also declined taking medications to pretreat allergic reaction to dye. Therefore discussed my physical exam and findings with Dr. Orlando. He recommended MRI without contrast of the soft tissue of the neck. MRI is negative. I believe that the patient has musculoskeletal pain. Blood work without a significant abnormality except for creatinine 1.1, glucose 114. Troponin 0.00. EKG is a normal sinus rhythm at [address] elevations. EKG shows Q waves in 2 and aVF. Patient denies any chest pain in the ED. Heart score is 2 and JESSIE score is 1. Patient given toradol for pain. Patient second troponin is 0.00. He continues to deny any CP in the ED. I discussed all the findings and test results with the patient. Patient was instructed to return to the emergency room immediately if any of the symptoms return or worsen. Plan of care was discussed with the patient and understands and agrees. All questions were answered at patient satisfaction. There were no further complaints or concerns. Lung exam before discharge: CTA B/L. Good air exchange. No wheezing or crackles heard. CVS: S1 and S2 present. No murmurs appreciated. Patient is alert and oriented x 3. Patient is hemodynamically stable. Patient will be discharged home with follow up PCP in the next 2-3 days - Diagnoses Provider Diagnoses: Neck pain, Chest pain - Physician Notifications Discussed Care Of Patient With: Art Orlando Time Discussed With Above Provider: 14:43 Instructed by Provider To: Other - Given contrast allergy and patient's refusal to take medictions to pretreat allergy, MRI without contrast is recommended by Dr. Orlando. Discharge ED - Sign-Out/Discharge Documenting (check all that apply): Patient Departure - discharge - Discharge Plan Condition: Stable Disposition: HOME Patient Education Materials: Chest Pain (ED), Neck Pain (ED) Referrals: Mikel Leonard MD [Primary Care Provider] - 3 Days Additional Instructions: PLEASE RETURN TO ED FOR ANY NEW OR WORSENING SYMPTOMS. PLEASE FOLLOW UP WITH YOUR PRIMARY CARE PHYSICIAN WITHIN THREE DAYS. - Billing Disposition and Condition Condition: STABLE Disposition: Home - Attestation Statements Document Initiated by Surendra: Yes Documenting Scribe: EUGENE HERNANDES Provider For Whom Surendra is Documenting (Include Credential): SAMIRA LEO MD Scribe Attestation: EUGENE Galvez, gautamibed for SAMIRA LEO MD on 02/01/19 at 0920. Scribe Documentation Reviewed: Yes Provider Attestation: The documentation as recorded by the EUGENE bangura accurately reflects the service I personally performed and the decisions made by me, SAMIRA LEO MD Status of Scribe Document: Viewed
[2019-01-30 12:49] LABS: Albumin 4.5 g/dL (3.2-5.2); Albumin/Globulin Ratio 1.8 (1-3); BUN/Creatinine Ratio 19.3 (8-20); Calcium 10.3 mg/dL (8.6-10.3); EGFR African American 74.7 (>60); EGFR Non-African American 61.7 (>60); Globulin 2.5 g/dL (2-4); Potassium 4.5 mmol/L (3.5-5.0); Total Bilirubin 0.3 mg/dL (0.2-1.0)
[2019-01-30 13:33] LABS: Erythrocyte Sed Rate 5 mm/Hr (0-19)
[2019-01-30] MEDS: Ketorolac INJ* 30 MG/ML 1 ML VIAL IV PUSH ONE (17:01)
[2019-01-30 17:21] VITALS: BP 167/83
== END 2019-01-30 17:10 | disposition home or self-care (01) ==
LOC: ED 11:54
DX: M54.2 Cervicalgia (principal); R07.9 Chest pain, unspecified; I25.2 Old myocardial infarction; E11.9 Type 2 diabetes mellitus without complications; I10 Essential (primary) hypertension; E78.00 Pure hypercholesterolemia, unspecified; J44.9 Chronic obstructive pulmonary disease, unspecified; F41.9 Anxiety disorder, unspecified; Z87.891 Personal history of nicotine dependence; Z95.5 Presence of coronary angioplasty implant and graft; Z88.8 Allergy status to other drugs, medicaments and biological substances; Z88.6 Allergy status to analgesic agent; Z91.041 Radiographic dye allergy status; Z91.040 Latex allergy status; Z79.84 Long term (current) use of oral hypoglycemic drugs; Z79.82 Long term (current) use of aspirin; Z79.899 Other long term (current) drug therapy
CPT/HCPCS: 36415; 70540; 80053; 83605; 84484; 85025; 85610; 85652; 86140; 93005; 96374; 99283; J1885